=== PATIENT | male | born 2000 | race Caucasian/White ===

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

== ENCOUNTER 2019-07-01 00:26 | Emergency (ER) | payer BC, OTHER ==
[2019-07-01] MEDS ORDERED: Ketorolac 60 MG/2 ML SDV IM ONE (00:54)
--- NOTE | 2019-07-01 01:13 | EDM.PDOC ---
ED HPI GENERAL MEDICAL PROBLEM - General Chief Complaint: Chest Pain Stated Complaint: chest pain Time Seen by Provider: 07/01/19 00:50 Source of Information: Reports: Patient - History of Present Illness INITIAL COMMENTS - FREE TEXT/NARRATIVE: pt states he was at work and developed sudden onset of pain in the lower anterior sternal border , reproducible , worse with cough , taking a deep breath and movement. Has flu about one week ago and still has dry cough though other symptoms have resolved had history of PUD but these symptoms are not similar to those Onset: Today, Sudden Onset Date: 06/30/19 Duration: Getting Worse Location: Reports: Chest (lower chest wall) Quality: Reports: Ache, Burning Severity: Moderate Improves with: Reports: None Worsens with: Reports: Breathing, Movement Associated Symptoms: Reports: No Other Symptoms Midsternal to L anterior chest pain Pain Score (Numeric/FACES): 4 - Related Data Allergies Allergy/AdvReac Type Severity Reaction Status Date / Time No Known Allergies Allergy Verified 07/01/19 00:38 Home Meds: Home Meds Lisdexamfetamine [Vyvanse] 50 mg PO DAILY 07/10/18 [History] Ketorolac [Toradol] 10 mg PO Q6H PRN #20 tab 07/01/19 [Rx] Ketorolac [Toradol] 10 mg PO Q6H PRN #20 tab 07/01/19 [Rx] Past Medical History - Past Health History Medical/Surgical History: Denies Medical/Surgical History Neurological History: Reports: Concussion Psychiatric History: Reports: Anxiety, Bipolar, Depression Endocrine/Metabolic History: Reports: Obesity/BMI 30+ - Infectious Disease History Infectious Disease History: Reports: MRSA - Past Surgical History HEENT Surgical History: Reports: Oral Surgery Social & Family History - Family History Family Medical History: Noncontributory - Tobacco Use Smoking Status *Q: Never Smoker - Caffeine Use Caffeine Use: Reports: Energy Drinks - Alcohol Use Days Per Week of Alcohol Use: 2 Number of Drinks Per Day: 2 Total Drinks Per Week: 4 - Recreational Drug Use Recreational Drug Use: No ED ROS GENERAL - Review of Systems Review Of Systems: See Below Constitutional: Reports: No Symptoms HEENT: Reports: No Symptoms Respiratory: Reports: Cough Cardiovascular: Reports: No Symptoms Endocrine: Reports: No Symptoms GI/Abdominal: Reports: No Symptoms : Reports: No Symptoms Musculoskeletal: Reports: No Symptoms Skin: Reports: No Symptoms Neurological: Reports: No Symptoms Psychiatric: Reports: No Symptoms ED EXAM, GENERAL - Physical Exam Exam: See Below Exam Limited By: No Limitations General Appearance: Alert, WD/WN, No Apparent Distress Eye Exam: Bilateral Eye: EOMI Ears: Normal TMs Ear Exam: Bilateral Ear: TM Dull Nose: Nasal Deformity Throat/Mouth: Normal Oropharynx Head: Atraumatic, Normocephalic Neck: Supple, Non-Tender, Full Range of Motion Respiratory/Chest: Lungs Clear, Normal Breath Sounds, Other (reproducible chest wall pain , tender onpalpation in the low sternal area) Cardiovascular: Regular Rate, Rhythm GI/Abdominal: Soft, Non-Tender Back Exam: Full Range of Motion, CVA Tenderness (R). No: CVA Tenderness (L) Extremities: Normal Range of Motion, Non-Tender Neurological: Alert, Oriented Course - Vital Signs Last Recorded V/S: Last Vital Signs Temp 36.4 C 07/01/19 00:28 Pulse 99 07/01/19 01:22 Resp 20 07/01/19 01:22 BP 126/42 L 07/01/19 01:22 Pulse Ox 99 07/01/19 01:22 - Orders/Labs/Meds Orders: Active Orders 24 hr Category Date Time Status EKG Documentation Completion [RC] ASDIRECTED Care 07/01/19 00:56 Active Vaccines to be Administered [RC] PER UNIT ROUTINE Care 07/01/19 01:34 Active EKG 12 Lead [EK] Routine Ther 07/01/19 00:56 Ordered Meds: Medications Discontinued Medications Generic Name Dose Route Start Last Admin Trade Name Freq PRN Reason Stop Dose Admin Diphtheria/Tetanus/Acell Pertussis 0.5 ml 07/01/19 01:34 Adacel IM 07/01/19 01:35 .ONCE ONE Ketorolac Tromethamine 60 mg 07/01/19 00:54 07/01/19 01:00 Toradol IM 07/01/19 00:55 60 mg ONETIME ONE Administration Departure - Departure Time of Disposition: :20 Disposition: Home, Self-Care 01 Clinical Impression: Costochondritis, acute - Discharge Information *PRESCRIPTION DRUG MONITORING PROGRAM REVIEWED*: Not Applicable *COPY OF PRESCRIPTION DRUG MONITORING REPORT IN PATIENT ASHLEY: Not Applicable Prescriptions: Ketorolac [Toradol] 10 mg PO Q6H PRN #20 tab PRN Reason: Headache/Pain Ketorolac [Toradol] 10 mg PO Q6H PRN #20 tab PRN Reason: Headache/Pain Instructions: Ketorolac injection, Chest Wall Pain, [id number] Referrals: PCP,None [Primary Care Provider] - Forms: ED Department Discharge Additional Instructions: 1) Warm compress to affected area of chest for 20 mins 3 times a day 2) increase fluid intake 3) treat other flu like symptoms Toradol 10mg every 6 hours as needed for pain. Follow up with regular MD at clinic as needed. Sepsis Event Note - Evaluation Sepsis Screening Result: No Definite Risk - Focused Exam Vital Signs: Vital Signs Temp Pulse Resp BP Pulse Ox 07/01/19 01:22 99 20 126/42 L 99 07/01/19 00:28 36.4 C 91 20 129/72 99 Date Exam was Performed: 07/01/19 Time Exam was Performed: 08:39 - My Orders Last 24 Hours: My Active Orders 07/01/19 00:56 EKG Documentation Completion [RC] ASDIRECTED EKG 12 Lead [EK] Routine 07/01/19 01:34 Vaccines to be Administered [RC] PER UNIT ROUTINE - Assessment/Plan Last 24 Hours: My Active Orders 07/01/19 00:56 EKG Documentation Completion [RC] ASDIRECTED EKG 12 Lead [EK] Routine 07/01/19 01:34 Vaccines to be Administered [RC] PER UNIT ROUTINE
[2019-07-01] MEDS ORDERED: Diphtheria,Pertussis(Acell),Tetanus Vaccine 0.5 ML SDV IM ONE (01:34)
== END 2019-07-01 01:26 | disposition home or self-care (01) ==
LOC: FB.ED 00:26
DX: M94.0 Chondrocostal junction syndrome [Tietze] (principal); E66.9 Obesity, unspecified; Z68.35 Body mass index [BMI] 35.0-35.9, adult
CPT/HCPCS: 93005; 96372; 99284; J1885